=== PATIENT | male | born 1945 | race Caucasian/White ===

== ENCOUNTER → 2020-08-30 12:02 | Outpatient (CLI) | payer OTHER, SELFPAY ==
--- NOTE | 2020-08-30 12:08 | DI.MRI.S_ITS ---
PROCEDURE: MR LUMBAR SPINE WO CON INDICATIONS: Spinal stenosis, lumbar region TECHNIQUE: Noncontrast sagittal T1 spin echo and T2 fast echo, sagittal STIR, axial T1 and T2 fast spin echo through the lumbar spine. In cases with scoliosis, additional coronal T2 fast spin echo may be performed. COMPARISON: [facility] [place], CR, XR LUMBAR SPINE WITH OLBIQUES PLUS FLEXION EXTENSION, 01/07/2018, 8:56. FINDINGS: Image quality: Excellent. Alignment and Curvature: 5 lumbar type vertebral bodies are present by plain film. Mild grade 1 retrolisthesis of L1 on L2, L2 on L3, L3 on L4, and L4 on L5. Loss of normal lumbar lordosis. Moderate leftward curvature of the mid/lower lumbar spine. Bone Marrow: Marrow is of normal overall signal. No acute vertebral body compression fractures. Moderate reactive signal within the endplates adjacent to the L2-L3, L3-L4, and L4-L5 intervertebral discs. Mild reactive signal within the endplates adjacent to the T12-L1 and L1-L2 intervertebral discs. Spinal Cord: Conus medullaris terminates at the mid L1 level. Visualized cord demonstrates normal signal and size. Paraspinous Soft Tissues: No paravertebral masses. T12-L1: Mild disc height loss and desiccation. Mild facet and ligamentum flavum hypertrophy. Mild epidural lipomatosis. Mild canal stenosis. No foraminal stenosis. L1-L2: Severe disc height loss and desiccation. Moderate diffuse disc bulge with superimposed broad-based left far lateral protrusion. Mild facet and ligamentum flavum hypertrophy. Mild epidural lipomatosis. Moderate canal stenosis. Mild left greater than right foraminal stenosis. L2-L3: Moderate disc height loss and desiccation. Mild diffuse disc bulge with superimposed broad-based right posterolateral and far lateral protrusion. Mild facet and ligamentum flavum hypertrophy. Mild epidural lipomatosis. Moderate canal stenosis. Mild left and moderate right foraminal stenosis. Right lateral recess stenosis is present associated with possible right L3 nerve root compression. L3-L4: Severe disc height loss and desiccation. Mild diffuse disc bulge/osteophyte. Mild facet and ligamentum flavum hypertrophy. Mild epidural lipomatosis. Mild canal stenosis. Moderate right and mild left foraminal stenosis. L4-L5: Moderate disc height loss and desiccation. Mild diffuse disc bulge. Mild facet and ligamentum flavum hypertrophy. Mild epidural lipomatosis. Moderate canal stenosis. Moderate subarticular foraminal stenosis bilaterally. L5-S1: Mild disc height loss and desiccation. Mild diffuse disc bulge. Mild bilateral facet hypertrophy. Mild canal stenosis. Moderate subarticular foraminal stenosis bilaterally. IMPRESSION: 1. Multilevel degenerative disc and facet disease, as well as ligamentum flavum hypertrophy and epidural lipomatosis. 2. Multilevel canal stenoses, worst at L1-L2, L2-L3, and L4-L5, where there are moderate canal stenosis. 3. Multilevel foraminal stenoses, worst at L2-L3, L3-L4, L4-L5, and L5-S1, where there are moderate foraminal stenoses present. 4. Right lateral recess stenosis at L2-L3 associated with possible right L3 nerve root compression. Recommend correlation with clinical symptoms to ascertain relevance of this finding. Dictated by: Kelton King M.D. on 08/30/2020 at 13:37 Approved by: Kelton King M.D. on 08/30/2020 at 13:40
== END ==
PROVIDERS: Referring Provider Orthopaedic Surgery Orthopaedic Surgery of the Spine; Visit Provider Orthopaedic Surgery Orthopaedic Surgery of the Spine
DX: M48.062 Spinal stenosis, lumbar region with neurogenic claudication (principal); M48.07 Spinal stenosis, lumbosacral region; M51.36 Other intervertebral disc degeneration, lumbar region; M51.37 Other intervertebral disc degeneration, lumbosacral region
CPT/HCPCS: 72148

== ENCOUNTER → 2021-11-05 11:51 | Outpatient (CLI) | payer OTHER, SELFPAY ==
--- NOTE | 2021-11-05 | DI.MRI.S_ITS ---
PROCEDURE: MR LUMBAR SPINE WO CON INDICATIONS: Other spondylosis with radiculopathy, lumbar region TECHNIQUE: Noncontrast sagittal T1 spin echo and T2 fast echo, sagittal STIR, and T2 fast spin echo through the lumbar spine. In cases with scoliosis, additional coronal T2 fast spin echo may be performed. COMPARISON: [facility], MR, MR LUMBAR SPINE WO CON, 08/30/2020, 12:19. FINDINGS: Image quality: Excellent. Alignment and Curvature: Unchanged levocurvature centered L3. There is a pseudoarticulation between the left transverse process of L5 and the sacrum, as before. Bone Marrow: Marrow is of normal overall signal. No acute vertebral body compression fractures. Spinal Cord: Conus medullaris terminates at the T12-L1 level. Visualized cord demonstrates normal signal and size. Paraspinous Soft Tissues: No paravertebral masses. T12-L1: Mild facet hypertrophy. No canal stenosis or foraminal stenosis. L1-L2: No significant change. Posterior disc/osteophyte complex, prominent centrally directed facet and ligament hypertrophy. Moderate canal stenosis. S moderate medial aspect right foraminal narrowing secondary to a combination of disc bulge and facet hypertrophy. Mild left foraminal narrowing. L2-L3: Posterior disc osteophyte complex. Bilateral facet hypertrophy, right greater than left. Moderate canal stenosis. Right foraminal disc bulge and facet hypertrophy. Moderate right foraminal narrowing with flattening deformity on the exiting right L2 nerve root. Mild to moderate left foraminal narrowing. L3-L4: Posterior disc osteophyte complex. Facet and ligament hypertrophy. Slight progression of canal stenosis, moderate. Moderate bilateral foraminal narrowing. Flattening deformity on the exiting right L3 nerve root. L4-L5: Disc bulge. Facet and ligament hypertrophy. Slight progression of canal stenosis, moderate to severe. Moderate bilateral foraminal narrowing with flattening deformity on the exiting bilateral L4 nerve roots. L5-S1: Exuberant facet hypertrophy. Disc bulge. Mild canal stenosis. Moderate left foraminal narrowing with mild flattening deformity on the exiting left L5 nerve root. IMPRESSION: 1. Extensive degenerative change, with mild levocurvature, and multilevel facet arthropathy. 2. Multilevel canal stenosis, with mild progression at L3-L4 and L4-L5. Canal stenosis is moderate at L1-L2, moderate at L2-L3, moderate at L3-L4, moderate to severe at L4-L5, and mild at L5-S1. 3. Multilevel foraminal narrowing as described above. Dictated by: Giorgio Reddy M.D. on 11/05/2021 at 14:46 Approved by: Giorgio Reddy M.D. on 11/05/2021 at 15:05
== END ==
PROVIDERS: PCP Preventive Medicine Occupational Medicine; Referring Provider Preventive Medicine Occupational Medicine; Visit Provider Preventive Medicine Occupational Medicine
DX: M47.26 Other spondylosis with radiculopathy, lumbar region (principal); M48.061 Spinal stenosis, lumbar region without neurogenic claudication
CPT/HCPCS: 72148

== ENCOUNTER → 2023-01-02 12:39 | Outpatient (CLI) | payer MEDICARE, SELFPAY ==
--- NOTE | 2023-01-02 12:41 | DI.CT.S_ITS ---
PROCEDURE: CT CHEST HIGH RESOLUTION INDICATIONS: interstitial lung disease TECHNIQUE: Noncontrast 1.0 and 5.0 mm thick contiguous axial sections from the pulmonary apex to the posterior costophrenic angles, with 7 mm thick coronal and sagittal MIP reformats. 1 mm thick dynamic expiratory images acquired through the upper, mid, and lower lungs. 1.0 mm thick axial sections acquired from the jasen to the posterior costophrenic angles in the prone end-inspiration position. For radiation dose reduction, the following was used: automated exposure control, adjustment of mA and/or kV according to patient size. COMPARISON: None. FINDINGS: Image quality: Excellent. Lungs: Basilar predominant reticulation, with subpleural sparing. No honeycombing. Mild bronchiectasis. Moderate air trapping. Pleura: No pleural effusions or pneumothorax. Mediastinum: Heart size is normal. No pericardial effusion. Thoracic aorta and central pulmonary arteries are normal in size. Esophagus is normal in caliber. Moderate coronary calcifications. Bones and chest wall: No suspicious bony lesions. No vertebral body compression fractures. The thyroid is mildly atrophic. Abdomen: Visualized upper abdominal solid organs and bowel loops appear normal. IMPRESSION: Basilar predominant reticulation with subpleural sparing and bronchiectasis. No honeycombing. Air trapping is present. 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 Pulmonology referral is recommended, if not already performed. Dictated by: Leonard Colorado M.D. on 01/02/2023 at 13:18 Approved by: Leonard Colorado M.D. on 01/02/2023 at 13:25
== END ==
PROVIDERS: PCP Internal Medicine; Referring Provider Internal Medicine Critical Care Medicine; Visit Provider Internal Medicine Critical Care Medicine
DX: J84.9 Interstitial pulmonary disease, unspecified (principal); J47.9 Bronchiectasis, uncomplicated
CPT/HCPCS: 71250

== ENCOUNTER → 2023-10-29 09:55 | Outpatient (CLI) | payer MEDICARE, SELFPAY | PROVIDERS: PCP Internal Medicine; Referring Provider Internal Medicine Critical Care Medicine; Visit Provider Internal Medicine Critical Care Medicine | DX: J84.9 Interstitial pulmonary disease, unspecified (principal); Z87.891 Personal history of nicotine dependence; Z86.16 Personal history of COVID-19 | CPT/HCPCS: 94060; 94726; 94729 ==

== ENCOUNTER → 2023-10-29 10:44 | Outpatient (CLI) | payer MEDICARE, SELFPAY ==
--- NOTE | 2023-10-29 10:44 | DI.CT.S_ITS ---
PROCEDURE: CT LUNG LOW DOSE SCREENING INDICATIONS: lung nodule TECHNIQUE: Noncontrast 2.0-2.5 mm thick sections acquired from the pulmonary apices to the posterior costophrenic angles. 7 mm thick axial MIP, and 5 mm coronal and sagittal reformats were then acquired. For radiation dose reduction, the following was used: automated exposure control, adjustment of mA and/or kV according to patient size. COMPARISON: [facility], CT, CT CHEST WITHOUT CONTRAST, 11/06/2022, 10:04. FINDINGS: Image quality: Diagnostic. Lower Neck: No enlarged lymph nodes. Thyroid: There is of focal heterogeneity of the thyroid involving the left lower lobe. Axillae: No enlarged lymph nodes. Chest Wall: Unremarkable. Bones: Osteophyte formation seen in the thoracic spine. Lungs and Pleura: The lungs are fully expanded and free of infiltrate. Previously noted 3 mm nodule along the left fissure is again seen unchanged from prior studies. Mild hypoaeration seen in the dependent portion of the lung bases. No pneumothorax or pleural effusion. No new nodules are demonstrated. Heart: Heart size is normal. No pericardial effusion. Calcification is seen in the coronary arteries. Thoracic Vessels: Calcifications in the aortic arch. A ascending aorta is mildly ectatic. No aneurysmal dilatation. Calcifications seen in the coronary arteries.. Mediastinum and Myrna: No enlarged lymph nodes. Esophagus: No wall thickening. No hiatal hernia. Upper Abdomen: Visualized upper abdomen solid organs and bowel loops appear normal. IMPRESSION: Stable left lung 3 mm nodule. Arterial calcifications including coronary arteries. Heterogeneity in the left lobe of the thyroid. LUNG-RADS 2, benign. Recommend continued annual screening as needed. Dictated by: Mulugeta Butts M.D. on 10/29/2023 at 16:01 Approved by: Mulugeta Butts M.D. on 10/29/2023 at 16:16
== END ==
PROVIDERS: PCP Internal Medicine; Referring Provider Internal Medicine Critical Care Medicine; Visit Provider Internal Medicine Critical Care Medicine
DX: R91.1 Solitary pulmonary nodule (principal); I25.10 Atherosclerotic heart disease of native coronary artery without angina pectoris; I77.810 Thoracic aortic ectasia; E07.9 Disorder of thyroid, unspecified
CPT/HCPCS: 71271; 94060; 94726; 94729